=== PATIENT | female | born 1980 | race American Indian/Alaskan Native ===

== ENCOUNTER 2016-11-15 12:23 | Emergency (ER) | payer MEDICARE ==
[2016-11-15] MEDS ORDERED: DECADRON IM ONE (20:57)
--- NOTE | 2016-11-15 20:59 | Emergency Department Report ---
- General Chief complaint: Back Pain/Injury Stated complaint: SEVERE BACK PAIN Time Seen by Provider: 11/15/16 20:55 Source: patient Mode of arrival: Ambulatory Limitations: No Limitations - History of Present Illness Initial comments: Patient reports eczema flareup she reports eczema flareup that started 2 weeks ago. LMP 10/16/16 complaint: rash Onset/Timin -: week(s) Tetanus Up to Date: yes Location: generalized Severity: severe Quality: other (pruritus) Consistency: constant Improves with: topical medication Worsens with: none Context: none Associated symptoms: itching Treatments Prior to Arrival: none - Related Data Previous Rx's Medication Instructions Recorded Last Taken Type Doxycycline [Vibramycin CAP] 100 mg PO BID #20 capsule 09/16/13 Unknown Rx Ibuprofen [Motrin] 600 mg PO Q8H PRN #60 tablet 09/16/13 Unknown Rx Fluticasone Propionate [Flonase] 16 gm NS DAILY #1 bottle 09/26/13 Unknown Rx Ibuprofen [Motrin] 600 mg PO Q8H PRN #60 tablet 04/15/14 Unknown Rx metroNIDAZOLE [Flagyl] 500 mg PO BID #20 tablet 04/15/14 Unknown Rx Ibuprofen [Motrin] 800 mg PO Q8H PRN #30 tablet 11/24/14 Unknown Rx traMADol [Ultram 50 MG tab] 50 mg PO Q6HR PRN #20 tablet 11/24/14 Unknown Rx Cephalexin [Keflex] 500 mg PO Q12HR #10 cap 11/15/16 Unknown Rx Hydroxyzine HCl [hydrOXYzine] 25 mg PO TID #30 tablet 11/15/16 Unknown Rx Triamcinolone 0.1% [Kenalog 0.1% 1 applic TP TID #1 tube 11/15/16 Unknown Rx CREAM] Allergies Allergy/AdvReac Type Severity Reaction Status Date / Time codeine Allergy Itching Verified 09/16/13 14:19 latex Allergy Itching Verified 09/16/13 14:19 Abscess Boil HPI - HPI Chief Complaint: Back Pain/Injury Stated Complaint: SEVERE BACK PAIN Home Medications: Previous Rx's Medication Instructions Recorded Last Taken Type Doxycycline [Vibramycin CAP] 100 mg PO BID #20 capsule 09/16/13 Unknown Rx Ibuprofen [Motrin] 600 mg PO Q8H PRN #60 tablet 09/16/13 Unknown Rx Fluticasone Propionate [Flonase] 16 gm NS DAILY #1 bottle 09/26/13 Unknown Rx Ibuprofen [Motrin] 600 mg PO Q8H PRN #60 tablet 04/15/14 Unknown Rx metroNIDAZOLE [Flagyl] 500 mg PO BID #20 tablet 04/15/14 Unknown Rx Ibuprofen [Motrin] 800 mg PO Q8H PRN #30 tablet 11/24/14 Unknown Rx traMADol [Ultram 50 MG tab] 50 mg PO Q6HR PRN #20 tablet 11/24/14 Unknown Rx Cephalexin [Keflex] 500 mg PO Q12HR #10 cap 11/15/16 Unknown Rx Hydroxyzine HCl [hydrOXYzine] 25 mg PO TID #30 tablet 11/15/16 Unknown Rx Triamcinolone 0.1% [Kenalog 0.1% 1 applic TP TID #1 tube 11/15/16 Unknown Rx CREAM] Allergies/Adverse Reactions: Allergies Allergy/AdvReac Type Severity Reaction Status Date / Time codeine Allergy Itching Verified 09/16/13 14:19 latex Allergy Itching Verified 09/16/13 14:19 ED Review of Systems ROS: Stated complaint: SEVERE BACK PAIN Other details as noted in HPI Constitutional: denies: chills, diaphoresis, fever, malaise, weakness Eyes: denies: eye pain, eye discharge, vision change ENT: denies: ear pain, throat pain, dental pain, hearing loss, epistaxis, congestion Respiratory: denies: cough, orthopnea, shortness of breath, SOB with exertion, SOB at rest, stridor, wheezing Cardiovascular: denies: chest pain, palpitations, dyspnea on exertion, orthopnea , edema, syncope, paroxysmal nocturnal dyspnea Skin: rash (generalized), pruritus (generalized). denies: lesions, change in color, change in hair/nails Hematological/Lymphatic: denies: easy bleeding, easy bruising, swollen glands ED Past Medical Hx - Past Medical History Previous Medical History?: Yes Additional medical history: faternal spastic paralysis, scolosis - Surgical History Additional Surgical History: lap band jun 2009 - Social History Smoking Status: Never Smoker Substance Use Type: None - Medications Home Medications: Home Medications Medication Instructions Recorded Confirmed Last Taken Type Doxycycline [Vibramycin CAP] 100 mg PO BID #20 capsule 09/16/13 Unknown Rx Ibuprofen [Motrin] 600 mg PO Q8H PRN #60 tablet 09/16/13 Unknown Rx Fluticasone Propionate [Flonase] 16 gm NS DAILY #1 bottle 09/26/13 Unknown Rx Ibuprofen [Motrin] 600 mg PO Q8H PRN #60 tablet 04/15/14 Unknown Rx metroNIDAZOLE [Flagyl] 500 mg PO BID #20 tablet 04/15/14 Unknown Rx Ibuprofen [Motrin] 800 mg PO Q8H PRN #30 tablet 11/24/14 Unknown Rx traMADol [Ultram 50 MG tab] 50 mg PO Q6HR PRN #20 tablet 11/24/14 Unknown Rx Cephalexin [Keflex] 500 mg PO Q12HR #10 cap 11/15/16 Unknown Rx Hydroxyzine HCl [hydrOXYzine] 25 mg PO TID #30 tablet 11/15/16 Unknown Rx Triamcinolone 0.1% [Kenalog 0.1% 1 applic TP TID #1 tube 11/15/16 Unknown Rx CREAM] ED Physical Exam - General Limitations: No Limitations General appearance: alert, in no apparent distress - Head Head exam: Present: atraumatic - Eye Eye exam: Present: normal appearance, PERRL, EOMI Pupils: Present: normal accommodation - ENT ENT exam: Present: normal exam, normal orophraynx, mucous membranes moist. Absent: mucous membranes dry - Neck Neck exam: Present: normal inspection, full ROM. Absent: tenderness, meningismus, lymphadenopathy, thyromegaly - Respiratory Respiratory exam: Present: normal lung sounds bilaterally. Absent: respiratory distress, wheezes, rales, rhonchi, stridor, chest wall tenderness, accessory muscle use, decreased breath sounds, prolonged expiratory - Cardiovascular Cardiovascular Exam: Present: regular rate, normal rhythm, normal heart sounds. Absent: systolic murmur, diastolic murmur, rubs, gallop, clicks, JVD, S3, S4 - Neurological Exam Neurological exam: Present: alert, oriented X3, CN II-XII intact, normal gait, reflexes normal. Absent: motor sensory deficit - Skin Skin exam: Present: warm, dry, intact, normal color, rash (generalize dry and scaly dermatitis, more pronounced on flexor areas), erythema (noted to left flexor area), urticaria. Absent: cyanosis, diaphoretic, vesicles, petechiae, pallor, abrasion, ecchymosis ED Course Vital Signs 11/15/16 13:09 Temperature 98 F Pulse Rate 70 Blood Pressure 112/71 O2 Sat by Pulse 16 L Oximetry - Reevaluation(s) Reevaluation #1: 11/15/16 20:58 Decadron injection ordered ED Medical Decision Making - Medical Decision Making During the course of ED, Decadron injection was ordered and sent home with several prescriptions such as Keflex, Hydroxyzine and Triamcinolone 0.1%, instructed to follow with selective referrals given at discharge, she verbalize understanding - Differential Diagnosis Eczema, Contact dermatitis, Allergic dermatitis Critical care attestation.: If time is entered above; I have spent that time in minutes in the direct care of this critically ill patient, excluding procedure time. ED Disposition Clinical Impression: Eczema Qualifiers: Eczema type: unspecified Qualified Code(s): L30.9 - Dermatitis, unspecified Disposition: DISCHARGED TO HOME OR SELFCARE Is pt being admited?: No Does the pt Need Aspirin: No Condition: Stable Instructions: Eczema (ED) Additional Instructions: Take medication as directed. Follow-up with the selective referrals given at discharge. Avoid excessive bathing. Use tepid water and mild soaps. Use frequent use of emollients such as Aquaphor ointment. Prescriptions: Cephalexin [Keflex] 500 mg PO Q12HR #10 cap Triamcinolone 0.1% [Kenalog 0.1% CREAM] 1 applic TP TID #1 tube Hydroxyzine HCl [hydrOXYzine] 25 mg PO TID #30 tablet Referrals: CHELSIE HEDRICK MD [Primary Care Provider] - 3-5 Days BERNARDO SCHWAB MD [Staff Physician] - 3-5 Days Forms: Work/School Release Form(ED) Time of Disposition: 21:04
[2016-11-15 21:35] VITALS: BP 110/65
[2016-11-15] MEDS ORDERED: DECADRON ONE (22:18)
== END 2016-11-15 21:00 | disposition left against medical advice (07) ==
LOC: ED 12:23
DX: M54.9 Dorsalgia, unspecified (principal); Z53.21 Procedure and treatment not carried out due to patient leaving prior to being seen by health care provider
CPT/HCPCS: 96372; J1100

== ENCOUNTER 2016-12-13 12:27 | Outpatient (CLI) | payer MEDICARE ==
--- NOTE | 2016-12-13 15:29 | Cat Scan Report ---
CT LUMBAR SPINE WITH AND WITHOUT CONTRAST HISTORY: Low back pain COMPARISON: MR lumbar spine dated 01/20/15. TECHNIQUE: Helical CT before and after IV contrast. Sagittal and coronal reformatted images. FINDINGS: There is normal height and alignment of the lumbar vertebral bodies. No fracture, subluxation or bone lesion. The posterior elements are in appropriate relationship. The disc spaces appear normal height throughout the lumbar region. There are moderate arthritic changes in the facet joints at L3-4, L4-5 and L5-S1. L1-2: No abnormality. L2-3: No abnormality. L3-4: No abnormality with the disc. There is mild facet arthropathy. No central canal stenosis or neural foraminal narrowing. L4-5: Perhaps a mild posterior bulging disc is identified. Moderate hypertrophic facet arthropathy is identified. No central canal stenosis is appreciated. Mild to moderate bilateral neural foraminal narrowing is suspected and estimated 50-75%. L5-S1: No significant abnormality with the disc. There is mild to moderate hypertrophic facet arthropathy. A unilateral left L5 pars defect is identified. This is a well-corticated defect consistent with a chronic pars defect. There is no evidence for central canal stenosis. Bilateral neural foraminal narrowing is estimated at 50%. The right side appear somewhat more affected. There is no evidence for abnormal enhancement following IV Gadolinium. IMPRESSION: No acute process. No evidence for fracture or abnormal enhancement. Moderate lumbar spondylosis primarily at the lowest 3 levels involving the facet joints. Chronic left L5 pars defect.
== END 2016-12-13 12:28 | disposition home or self-care (01) ==
LOC: CT 12:27
PROVIDERS: ATTEND Internal Medicine
DX: M47.896 Other spondylosis, lumbar region (principal); M12.88 Other specific arthropathies, not elsewhere classified, other specified site; M54.5 Low back pain
CPT/HCPCS: 72133; Q9967